=== PATIENT | male | born 1975 | race American Indian/Alaskan Native ===

== ENCOUNTER → 2018-02-19 | Outpatient (CLI) | payer SELFPAY ==
[~2018-02-19] MED LIST: ADVIL COLD/SINUS; ALBU90OI INH; Bactrim Ds Tab1 EACH PO; CARI350; CEPH500 PO; CLAR500 PO; DOXY100 PO; HYDACE5 PO; HYDACE5325 PO; HYDGUAL120 PO; NAPR500 PO; OXYACE5T PO; OXYACE7.5T PO; PRED20 PO; ROBITUSSIN DM; RXIBUP800; RXOXYACE PO; SILSUL1TC TOP; SULTRIDS PO
== END | disposition home or self-care (01) ==
LOC: LAB SHORT 15:28 → LAB EV 15:28
DX: L73.9 Follicular disorder, unspecified (principal)
CPT/HCPCS: 87070; 87205

== ENCOUNTER → 2018-11-12 | Outpatient (CLI) | payer BC ==
[2018-11-15 02:12] LABS: CHLAMYDIA TRACHOMATIS, NAA Negative (Negative); NEISSERIA GONORRHOEAE, NAA Negative (Negative)
== END ==
LOC: LAB 08:52 → LAB SHORT 08:52
PROVIDERS: Registered Nurse Community Health
DX: Z20.2 Contact with and (suspected) exposure to infections with a predominantly sexual mode of transmission (principal)
CPT/HCPCS: 87491; 87591